=== PATIENT | male | born 1970 | race Caucasian/White ===

== ENCOUNTER 2016-10-13 12:17 | Emergency (ER) | payer SELFPAY ==
[2016-10-13] MEDS ORDERED: ONDANSETRON 4 MG TAB.RAPDIS PO ONE (13:13)
[2016-10-13] MEDS ORDERED: KETOROLAC TROMETHAMINE 60 MG/2 ML SDV IM ONE (13:13)
--- NOTE | 2016-10-13 13:26 | ER Document Report ---
ED GI/ - General Chief Complaint: Low Back Pain Stated Complaint: URINARY ISSUE Notes: Patient is complaining of pain in the right flank which began last night. He's had some nausea but not vomiting. Has not had any UTI symptoms or noted any blood in his urine. No fever. Patient has a history of kidney stones, having had a left kidney stone removed this past May, followed by having a stent in that left ureter which was removed June 12. On an x-ray of the patient's abdomen on that visit in June, patient had a 7 mm right kidney stone. Hx: Appendectomy, double hernia repair, left kidney surgery for stone. TRAVEL OUTSIDE OF THE [place] IN LAST 30 DAYS: No - Related Data Allergies/Adverse Reactions: No Known Allergies Allergy (Verified 10/13/16 12:37) Past Medical History - Social History Smoking Status: Former Smoker Cigarette use (# per day): No Chew tobacco use (# tins/day): No Frequency of alcohol use: None Drug Abuse: None Family History: Reviewed & Not Pertinent Patient has suicidal ideation: No Patient has homicidal ideation: No - Past Medical History Cardiac Medical History: Denies: Hx Coronary Artery Disease, Hx Heart Attack, Hx Hypertension Pulmonary Medical History: Denies: Hx Asthma, Hx Bronchitis, Hx COPD, Hx Pneumonia Renal/ Medical History: Reports: Hx Kidney Stones Musculoskeltal Medical History: Denies Hx Arthritis Past Surgical History: Reports: Hx Appendectomy, Hx Herniorrhaphy - Bilateral at age 14, Hx Kidney (Renal Surgery) - Lithotripsy, renal stent, Hx Orthopedic Surgery - knees - Immunizations Immunizations up to date: Yes Hx Diphtheria, Pertussis, Tetanus Vaccination: Yes Review of Systems - Review of Systems Notes: REVIEW OF SYSTEMS: CONSTITUTIONAL : Denies fever. EENT: Denies eye, ear, nose or mouth or throat pain or other symptoms. CARDIOVASCULAR: Denies chest pain. RESPIRATORY: Denies cough, chest congestion, or shortness of breath. GASTROINTESTINAL: Denies abdominal pain, vomiting, or diarrhea. Has pain in the right flank and some nausea. GENITOURINARY: Denies difficulty or painful urinating, urinary frequency, blood in urine. MUSCULOSKELETAL: Denies back or neck pain. Denies joint pain or swelling. SKIN: Denies rash or skin lesions. NEUROLOGICAL: Denies LOC or altered mental status. Denies headache. Denies sensory loss or motor deficits. ALL OTHER SYSTEMS REVIEWED AND NEGATIVE. Physical Exam - Vital signs Vitals: Temp Pulse Resp BP Pulse Ox 98.0 F 83 18 125/70 100 10/13/16 12:23 10/13/16 12:23 10/13/16 12:23 10/13/16 12:23 10/13/16 12:23 Interpretation: Normal - Notes Notes: PHYSICAL EXAMINATION: GENERAL: Well-appearing, in no acute distress. Ambulatory without difficulty. All vital signs are normal. HEAD: Atraumatic, normocephalic. LUNGS: Breath sounds clear and equal bilaterally. HEART: Regular rate and rhythm without murmurs. ABDOMEN: Soft, nontender. No guarding or rebound. Bowel sounds are normal. Mild tenderness to percussion in the right flank. BACK: No tenderness throughout entire back. EXTREMITIES: Normal range of motion without pain. NEUROLOGICAL: Normal speech, normal gait. Normal sensory, motor, and reflex exams. Awake, alert, and oriented x3. Cranial nerves normal. PSYCH: Normal mood, normal affect. SKIN: Warm, dry, no rashes. Course - Re-evaluation Re-evalutation: 10/13/16 13:[address] scan result from May,. Reviewed KUB results and report from June,. Shows a 7 mm stone in the right kidney. - Vital Signs Vital signs: Temp Pulse Resp BP Pulse Ox 98.0 F 83 18 125/70 100 10/13/16 12:23 10/13/16 12:23 10/13/16 12:23 10/13/16 12:23 10/13/16 12:23 - Diagnostic Test Radiology reviewed: Image reviewed - X-ray of the abdomen shows 2 stones in the right kidney, the largest measuring 7 mm. There is no evidence of a ureteral stone., Reports reviewed Discharge - Discharge Clinical Impression: Renal colic on right side Condition: Stable Disposition: HOME, SELF-CARE Additional Instructions: Flank Pain We weren't able to prove an exact cause for your flank pain. Pain in the flank can be caused by a muscle strain or spasm. Sometimes a kidney stone causes pain, but can't be found on our tests. Infection in the kidney should be evident on a urine test. Early shingles can occasionally cause flank pain, without the rash that proves the diagnosis. On rare occasions, disease of the pancreas, aorta, spleen, or colon can create pain in the flank. At this time, there's no evidence of a dangerous condition, and it seems safe for you to be at home. If the pain goes away and does not come back, no further testing will be needed. If pain persists, or becomes more severe, we may need to repeat some tests or order additional new testing. Blood in the urine, urgency to urinate frequently, and pain that radiates to the groin can indicate a kidney stone. Fever may mean that the pain is due to infection, either of the kidney or the colon (diverticulitis). If your pain is early shingles, you should develop an eruption of blisters in the painful area within a few days. Call the doctor or return if you have pain that is spreading or becoming more severe, pain that does not resolve with time, fever, or any other new symptoms. Kidney Stone You have two kidney stonesin your right kidney. These stones are usually due to increased calcium or uric acid concentrations in your urine. Stones within the kidney itself are not painful. The pain occurs as the stone leaves the kidney to pass down the long tube, called the ureter, leading to the bladder. If the stone is small, it will usually pass by itself. Most patients can pass the stone at home. You will usually receive medications for pain, nausea or vomiting, and sometimes a medication to assist in passing the kidney stone. However, if the pain is very severe or if vomiting prevents you from taking oral pain medications, you may need to return for further treatment. Drink three or four quarts of fluids per day. You will be given pain medication (if needed) and urine strainers. Strain all your urine to see if the stone passes. If your doctor has asked you to bring the stone in for analysis, return with the stone once it has passed. Return if pain or vomiting become severe, if you develop a high fever, if you are unable to pass your urine, or if other unusual symptoms occur. Your urinalysis was normal, without evidence of infection or bleeding. Antinausea Medication You have been given a medication to suppress nausea and vomiting. This type of medication can be given as a shot, pill, or suppository. It will usually last for many hours. Pills and shots usually last six to eight hours, suppositories last about 12 hours. For the typical illness, only one or two doses of the medication may be necessary. Mild lightheadedness may occur. This type of medicine can cause drowsiness. Do not drive or operate dangerous machinery while under its influence. Do not mix with alcohol. See your doctor at once if you have muscle spasms or tightness, or uncontrollable motions (particularly of the neck, mouth, or jaw). Persistent vomiting or severe lightheadedness should also be evaluated by the physician. Oral Narcotic Medication You have been given a prescription for pain control. This medication is a narcotic. It's best taken with food, as nausea can result if taken on an empty stomach. Don't operate machinery or drive within six hours of taking this medication. Do not combine this medicine with alcohol, or with any medication which can cause sedation (such as cold tablets or sleeping pills) unless you get permission from the physician. Narcotics tend to cause constipation. If possible, drink plenty of fluids and eat a diet high in fiber and fruits. FOLLOW-UP CARE: If you have been referred to a physician for follow-up care, call the physician s office for an appointment as you were instructed or within the next two days. If you experience worsening or a significant change in your symptoms, notify the physician immediately or return to the Emergency Department at any time for re-evaluation. Return to the emergency department for reevaluation if you have pain that you can't control with the pain medication prescribed, if you have vomiting and can' t keep down fluids in your medications, or if you run a significant fever, greater than 100. We recommend you follow-up with Dr. Meléndez Prescriptions: Oxycodone HCl/Acetaminophen [Percocet 5-325 mg Tablet] 1 - 2 tab PO Q4H PRN #15 tablet PRN Reason: Promethazine HCl [Phenergan 25 mg Tablet] 1 - 2 tab PO Q6H PRN #15 tablet PRN Reason: Referrals: WERO MELÉNDEZ MD [ACTIVE STAFF] - Follow up as needed
[2016-10-13 13:37] LABS: APPEARANCE,URINE CLEAR; BILIRUBIN,URINE NEGATIVE (NEGATIVE); GLUCOSE, URINE NEGATIVE (NEGATIVE); KETONES,URINE NEGATIVE (NEGATIVE); LEUKOCYTE ESTERASE,URINE NEGATIVE (NEGATIVE); NITRITE,URINE NEGATIVE (NEGATIVE); PROTEIN,URINE NEGATIVE (NEGATIVE); URINE SPECIFIC GRAVITY 1.019; UROBILINOGEN,URINE NEGATIVE mg/dL (<2.0)
[2016-10-13 14:50] VITALS: BP 116/78
== END 2016-10-13 14:51 | disposition home or self-care (01) ==
LOC: ER 12:17
DX: N20.0 Calculus of kidney (principal); M54.5 Low back pain; R11.0 Nausea; Z98.890 Other specified postprocedural states; Z87.891 Personal history of nicotine dependence
CPT/HCPCS: 99284; 96372; 81001; 74000; J1885; S0119

== ENCOUNTER 2018-02-15 02:08 | Emergency (ER) | payer SELFPAY ==
[2018-02-15] MEDS ORDERED: MORPHINE SULFATE 10 MG/ML INJ IV ONE (02:42)
[2018-02-15] MEDS ORDERED: ONDANSETRON HCL INJ/PF 4 MG/2 ML SDV IV ONE (02:42)
[2018-02-15] MEDS ORDERED: NORMAL SALINE 1000 ML 1,000 ML IV ONE ×3 (02:42→05:09)
[2018-02-15] MEDS ORDERED: KETOROLAC TROMETHAMINE INJ/PF 30 MG/1 ML SDV IV ONE (02:42)
--- NOTE | 2018-02-15 02:46 | ER Document Report ---
ED General <KRYSTYNA HAN - Last Filed: 02/15/18 07:07> - General Mode of Arrival: Ambulatory Information source: Patient TRAVEL OUTSIDE OF THE [place] IN LAST 30 DAYS: No <LAUREN HERNANDEZ - Last Filed: 02/28/18 14:22> - General Chief Complaint: Possible Kidney Stone Stated Complaint: FLANK PAIN Time Seen by Provider: 02/15/18 02:34 Notes: Patient is a 47 year old male with a history of kidney stones presents to the emergency department complaining of right sided flank pain worsening 2 hours ago. Patient states his flank pain was onset yesterday morning stating his pain was located in right flank and radiated into his right lower quadrant and right testicle. He also mentioned he noticed that his urine was a little cloudy. He states he proceeded to drink a lot of water throughout the day and when he returned home, he went to bed. Around 0100, patient states he woke up with his right flank pain being severely worse. Patient states he previously had a laser lithotripsy on the left in May 2016. At bedside patient is kneeling on the floor due to pain. (LAUREN HERNANDEZ) - Related Data Allergies/Adverse Reactions: No Known Allergies Allergy (Verified 10/13/16 12:37) Past Medical History - General Information source: Patient - Social History Smoking Status: Former Smoker Family History: Reviewed & Not Pertinent Patient has suicidal ideation: No Patient has homicidal ideation: No Renal/ Medical History: Reports: Hx Kidney Stones Past Surgical History: Reports: Hx Appendectomy, Hx Herniorrhaphy - Bilateral at age 14, Hx Kidney (Renal Surgery) - Lithotripsy, renal stent, Hx Orthopedic Surgery - knees - Immunizations Immunizations up to date: Yes Hx Diphtheria, Pertussis, Tetanus Vaccination: Yes <LAUREN HERNANDEZ - Last Filed: 02/28/18 14:22> Review of Systems - Review of Systems Constitutional: No symptoms reported EENT: No symptoms reported Cardiovascular: No symptoms reported Respiratory: No symptoms reported Gastrointestinal: No symptoms reported Genitourinary: See HPI, Flank pain Male Genitourinary: No symptoms reported Musculoskeletal: No symptoms reported Skin: No symptoms reported Hematologic/Lymphatic: No symptoms reported Neurological/Psychological: No symptoms reported -: Yes All other systems reviewed and negative <LAUREN HERNANDEZ - Last Filed: 02/28/18 14:22> Physical Exam - General General appearance: Alert, Other - Appears uncomfortable, seemed angry due to pain. In distress: None - HEENT Head: Normocephalic, Atraumatic Extraocular movements intact: Yes Pupils: PERRL - Respiratory Respiratory status: No respiratory distress - Cardiovascular Rhythm: Regular Heart sounds: Normal auscultation Murmur: No Friction rub: No Gallop: None auscultated - Abdominal Inspection: Normal Distension: No distension Bowel sounds: Normal Tenderness: Tender - RLQ tenderness to palaption Organomegaly: No organomegaly - Back Back: CVA tenderness - Right CVA tenderness to palpation - Extremities General upper extremity: Normal ROM General lower extremity: Normal ROM - Neurological Neuro grossly intact: Yes Cognition: Normal Orientation: AAOx4 Jose D Coma Scale Eye Opening: Spontaneous [place] Coma Scale Verbal: Oriented Jose D Coma Scale Motor: Obeys Commands Jose D Coma Scale Total: 15 Speech: Normal - Psychological Associated symptoms: Normal affect, Normal mood, Angry - due to pain - Skin Skin Temperature: Warm Skin Moisture: Dry Skin Color: Normal <LAUREN HERNANDEZ - Last Filed: 02/28/18 14:22> - Vital signs Vitals: Temp Pulse Resp BP Pulse Ox 97.6 F 66 18 135/77 H 99 02/15/18 02:14 02/15/18 02:14 02/15/18 02:14 02/15/18 02:14 02/15/18 02:14 Course - Diagnostic Test Radiology reviewed: Image reviewed - Mid right ureteral stone about 6 mm x 8 mm with mild to moderate hydroureter and hydronephrosis. <KRYSTYNA HAN - Last Filed: 02/15/18 07:07> <LAUREN HERNANDEZ - Last Filed: 02/28/18 14:22> - Re-evaluation Re-evalutation: 02/15/18 06:14 The urine had a specific gravity 1.026 after 2 liters of IV fluid. There were 40 WBCs and too numerous to count RBCs. It was dipstick negative for leukocyte esterase and negative for nitrites. Urine will be cultured. (KRYSTYNA HAN) - Vital Signs Vital signs: Temp Pulse Resp BP Pulse Ox 97.9 F 61 20 110/67 98 02/15/18 07:32 02/15/18 07:32 02/15/18 07:32 02/15/18 07:32 02/15/18 07:32 - Laboratory Laboratory results interpreted by me: 02/15/18 04:40 Urine Protein 100 H Urine Blood LARGE H Urine Urobilinogen 2.0 H Discharge <KRYSTYNA HAN - Last Filed: 02/15/18 07:07> <LAUREN HERNANDEZ - Last Filed: 02/28/18 14:22> - Discharge Clinical Impression: Renal colic on right side, Hematuria Condition: Stable Disposition: HOME, SELF-CARE Additional Instructions: Kidney Stone You are passing or have passed a kidney stone. These stones are usually due to increased calcium or uric acid concentrations in your urine. Stones within the kidney itself are not painful. The pain occurs as the stone leaves the kidney to pass down the long tube, called the ureter, leading to the bladder. If the stone is small, it will usually pass by itself. Most patients can pass the stone at home. You will usually receive medications for pain, nausea or vomiting, and sometimes a medication to assist in passing the kidney stone. However, if the pain is very severe or if vomiting prevents you from taking oral pain medications, you may need to return for further treatment. Drink three or four quarts of fluids per day. You will be given pain medication (if needed) and urine strainers. Strain all your urine to see if the stone passes. If your doctor has asked you to bring the stone in for analysis, return with the stone once it has passed. Return if pain or vomiting become severe, if you develop a high fever, if you are unable to pass your urine, or if other unusual symptoms occur. Take the medications as prescribed for pain and nausea. Plenty of fluids. Rest today. Follow-up with a local urologist if not improving. RETURN TO THE EMERGENCY ROOM IF ANY NEW OR WORSENING SYMPTOMS. Prescriptions: Ondansetron HCl [Zofran 8 mg Tablet] 8 mg PO Q6 PRN #15 tab PRN Reason: Referrals: [facility] [Provider Group] - Follow up as needed [facility] [Provider Group] - Follow up as needed Scribe Attestation: 02/15/18 03:11 I personally performed the services described in the documentation, reviewed and edited the documentation which was dictated to the scribe in my presence, and it accurately records my words and actions. (KRYSTYNA HAN) Scribe Documentation - Scribe Written by Dimple:: Dimple Rosa, 02/15/2018 02:53 acting as scribe for :: Arya <LAUREN HERNANDEZ - Last Filed: 02/28/18 14:22>
[2018-02-15 05:38] LABS: APPEARANCE,URINE CLOUDY; BILIRUBIN,URINE NEGATIVE (NEGATIVE); CALCIUM OXALATE CRYSTALS,URINE MODERATE /HPF; COLOR,URINE AMBER; GLUCOSE, URINE NEGATIVE (NEGATIVE); KETONES,URINE NEGATIVE (NEGATIVE); LEUKOCYTE ESTERASE,URINE NEGATIVE (NEGATIVE); NITRITE,URINE NEGATIVE (NEGATIVE); PROTEIN,URINE 100 mg/dL (NEGATIVE); URINE SPECIFIC GRAVITY 1.026
--- NOTE | 2018-02-15 06:50 | RADIOLOGY REPORT (SQ) ---
EXAM DESCRIPTION: CT ABDOMEN AND PELVIS WITHOUT CONTRAST CLINICAL HISTORY: Right flank pain, hematuria COMPARISON: 05/06/2016 TECHNIQUE: CT of the abdomen and pelvis without IV contrast. Evaluation of the solid organs and vasculature is suboptimal due to lack of IV contrast. DLP: 351.68 mGy-cm FINDINGS: Lung Bases: Minimal bilateral dependent atelectasis. Bones: No destructive bone lesions identified. Minimal degenerative change of the spine. Abdomen: Liver: The liver has normal size and density. Gallbladder: No calcified gallstones. Spleen, Pancreas, and Adrenal Glands: The spleen, pancreas, and adrenal glands are unremarkable. Kidneys: There is a 0.8 cm obstructing calculus in the proximal right ureter producing mild right hydroureter and hydronephrosis. There is a 0.7 cm nonobstructing right renal calculus. No left-sided hydronephrosis. Vasculature: The aorta and IVC have normal caliber and position. Stomach: The stomach and duodenum have normal course. Other: No free intraperitoneal air. No free fluid or lymphadenopathy. Pelvis: Bladder: Urinary bladder is unremarkable. Bowel: No dilated loops of large or small bowel. Appendix: Normal appendix. Pelvis: Dystrophic calcifications identified in a nonenlarged prostate. IMPRESSION: 1. There is a 0.8 cm obstructing calculus in the proximal right ureter producing mild right hydroureter and hydronephrosis. 2. Nonobstructing right renal calculus. This exam was performed according to our departmental dose-optimization program, which includes automated exposure control, adjustment of the mA and/or kV according to patient size and/or use of iterative reconstruction technique.
[2018-02-15] MEDS ORDERED: ONDANSETRON ODT 4 MG TAB (6 TAB/ER DISP) PO PRN (07:02)
[2018-02-15] MEDS ORDERED: HYDROCODONE/ACETAMINOPHEN 5-325 MG (6 TAB/ER DISP) PO PRN (07:02)
[2018-02-15 07:33] VITALS: BP 110/67
== END 2018-02-15 07:40 | disposition home or self-care (01) ==
LOC: ER 02:08
DX: N13.2 Hydronephrosis with renal and ureteral calculous obstruction (principal); R31.9 Hematuria, unspecified; Z98.890 Other specified postprocedural states
CPT/HCPCS: 99284; 96361; 96374; 96375; 87086; 81001; 76380; J1885; J2270; J2405; J7030

== ENCOUNTER 2018-02-16 20:15 | Emergency (ER) | payer SELFPAY ==
[2018-02-16] MEDS ORDERED: KETOROLAC TROMETHAMINE 60 MG/2 ML SDV IM ONE (20:21)
[2018-02-16] MEDS ORDERED: PROMETHAZINE HCL INJ 25 MG/1 ML VIAL IM ONE (23:02)
[2018-02-16 23:08] LABS: ABSOLUTE BASOPHILS # (AUTO) 0.1 10^3/uL (0.0-0.2); ABSOLUTE EOSINOPHILS # (AUTO) 0.1 10^3/uL (0.0-0.6); BASOPHILS % (AUTO) 0.9 % (0-2); EOSINOPHILS % (AUTO) 0.7 % (0-6); HEMATOCRIT 38.1 % (37.9-51.0); HEMOGLOBIN 12.7 g/dL (13.5-17.0); MEAN CORPUSCULAR HEMOGLOBIN 28.7 pg (27.0-33.4); MEAN CORPUSCULAR HGB CONC 33.2 g/dL (32.0-36.0); MEAN CORPUSCULAR VOLUME 86 fl (80-97); MONOCYTES % (AUTO) 8.4 % (3-13); PLATELET COUNT 246 10^3/uL (150-450); RED BLOOD COUNT 4.42 10^6/uL (4.35-5.55); RED CELL DISTRIBUTION WIDTH 14.3 % (11.5-14.0); TOTAL CELLS COUNTED % (AUTO) 100 %; WHITE BLOOD COUNT 12.1 10^3/uL (4.0-10.5)
[2018-02-16 23:22] LABS: ANION GAP 8 (5-19); BLOOD UREA NITROGEN 25 mg/dL (7-20); CALCIUM 9.1 mg/dL (8.4-10.2); CARBON DIOXIDE 25 mmol/L (22-30); CHLORIDE 108 mmol/L (98-107); GLUCOSE 98 mg/dL (75-110); POTASSIUM 3.8 mmol/L (3.6-5.0); SODIUM 140.8 mmol/L (137-145)
[2018-02-16] MEDS: NORMAL SALINE 1000 ML 1,000 ML IV PRN (23:25)
[2018-02-16] MEDS ORDERED: HYDROMORPHONE HCL INJ/PF 2 MG/ML AMPULE IV ONE (23:32)
[2018-02-17 01:11] LABS: APPEARANCE,URINE SLIGHTLY-CLOUDY; BILIRUBIN,URINE NEGATIVE (NEGATIVE); COLOR,URINE YELLOW; GLUCOSE, URINE NEGATIVE (NEGATIVE); KETONES,URINE 20 mg/dL (NEGATIVE); LEUKOCYTE ESTERASE,URINE NEGATIVE (NEGATIVE); NITRITE,URINE NEGATIVE (NEGATIVE); PROTEIN,URINE 30 mg/dL (NEGATIVE); URINE SPECIFIC GRAVITY 1.026
--- NOTE | 2018-02-17 01:52 | ER Document Report ---
ED General - General Chief Complaint: Flank Pain Stated Complaint: BACK PAIN Time Seen by Provider: 02/16/18 22:04 Mode of Arrival: Ambulatory Information source: Patient TRAVEL OUTSIDE OF THE [place] IN LAST 30 DAYS: No - HPI Patient complains to provider of: kidney stone pain Onset: Yesterday - started yesterday. Was seen here and ischarged home-pain meds not working Onset/Duration: Waxing and waning Quality of pain: Pressure Severity: Moderate Associated symptoms: Nausea, Vomiting Exacerbated by: Denies Relieved by: Denies Similar symptoms previously: Yes Recently seen / treated by doctor: Yes - Related Data Allergies/Adverse Reactions: No Known Allergies Allergy (Verified 10/13/16 12:37) Past Medical History - General Information source: Patient - Social History Smoking Status: Former Smoker Chew tobacco use (# tins/day): No Frequency of alcohol use: None Drug Abuse: None Family History: Reviewed & Not Pertinent Patient has suicidal ideation: No Patient has homicidal ideation: No - Past Medical History Cardiac Medical History: Reports: None Pulmonary Medical History: Reports: None EENT Medical History: Reports: None Neurological Medical History: Reports: None Endocrine Medical History: Reports: None Renal/ Medical History: Reports: Hx Kidney Stones. Denies: Hx Peritoneal Dialysis Malignancy Medical History: Reports None GI Medical History: Reports: None Musculoskeltal Medical History: Reports None Past Surgical History: Reports: Hx Appendectomy, Hx Herniorrhaphy - Bilateral at age 14, Hx Kidney (Renal Surgery) - Lithotripsy, renal stent, Hx Orthopedic Surgery - knees - Immunizations Immunizations up to date: Yes Hx Diphtheria, Pertussis, Tetanus Vaccination: Yes Review of Systems - Review of Systems Constitutional: No symptoms reported EENT: No symptoms reported Cardiovascular: No symptoms reported Respiratory: No symptoms reported Gastrointestinal: Nausea, Vomiting, Constipation - last BM 4 dyas ago Genitourinary: No symptoms reported Male Genitourinary: No symptoms reported Musculoskeletal: No symptoms reported Skin: No symptoms reported Hematologic/Lymphatic: No symptoms reported Neurological/Psychological: No symptoms reported Physical Exam - Vital signs Vitals: Temp Pulse Resp BP Pulse Ox 98.6 F 57 L 18 120/72 99 02/16/18 20:28 02/16/18 20:28 02/16/18 20:28 02/16/18 20:28 05/16/18 20:28 - Notes Notes: PHYSICAL EXAMINATION: GENERAL: She with mild distress secondary to right flank pain. Emesis in the emergency chemistry department chair: Atraumatic, normocephalic. EYES: Pupils equal round and reactive to light, extraocular movements intact, sclera anicteric, conjunctiva are normal. ENT: Nares patent, oropharynx clear without exudates. Dry mucous membranes. NECK: Normal range of motion, supple without lymphadenopathy LUNGS: Breath sounds clear to auscultation bilaterally and equal. No wheezes rales or rhonchi. HEART: Regular rate and rhythm without murmurs ABDOMEN: Soft, nontender, nondistended abdomen. No guarding, no rebound. No masses appreciated. Musculoskeletal: Normal range of motion, no pitting or edema. No cyanosis. NEUROLOGICAL: Cranial nerves grossly intact. Normal speech, normal gait. Normal sensory, motor exams PSYCH: Normal mood, normal affect. SKIN: Warm, Dry, normal turgor, no rashes or lesions noted. Course - Re-evaluation Re-evalutation: 02/17/18 01:52 Labs- All tests 24 hr 02/16/18 02/16/18 02/17/18 23:00 23:00 00:20 WBC 12.1 H RBC 4.42 Hgb 12.7 L Hct 38.1 MCV 86 MCH 28.7 MCHC 33.2 RDW 14.3 H Plt Count 246 Seg Neutrophils % 82.0 H Lymphocytes % 8.0 L Monocytes % 8.4 Eosinophils % 0.7 Basophils % 0.9 Absolute Neutrophils 10.0 H Absolute Lymphocytes 1.0 Absolute Monocytes 1.0 Absolute Eosinophils 0.1 Absolute Basophils 0.1 Sodium 140.8 Potassium 3.8 Chloride 108 H Carbon Dioxide 25 Anion Gap 8 BUN 25 H Creatinine 1.59 H Est GFR ( Amer) 57 L Est GFR (Non-Af Amer) 47 L Glucose 98 Calcium 9.1 Urine Color YELLOW Urine Appearance SLIGHTLY-CLOUDY Urine pH 5.0 Ur Specific [place] 1.026 Urine Protein 30 H Urine Glucose (UA) NEGATIVE Urine Ketones 20 H Urine Blood MODERATE H Urine Nitrite NEGATIVE Urine Bilirubin NEGATIVE Urine Urobilinogen 4.0 H Ur Leukocyte Esterase NEGATIVE Urine WBC (Auto) 4 Urine RBC (Auto) 21 Squamous Epi Cells Auto 1 Urine Mucus (Auto) MANY Urine Ascorbic Acid NEGATIVE 02/17/18 01:53 CAT scan done yesterday which was a stone study shows a 0.8 cm proximal right ureteral stone with mild hydro- 02/17/18 01:53 He is feeling much better after Dilaudid Toradol and IV fluids. He has no emesis in the emergency department he is tolerating Gatorade. I told him that tomorrow he has to call urology and find a urologist for follow-up as we do not have one filtration supervisor here tonight and we do not have one until next Wednesday. Patient is to make sure he is drinking plenty of fluids. I will give him Toradol to go home with as a seem to work the best for pain management. Patient is to return to the emergency department if he has fevers, intractable vomiting, inability to urinate, increased pain or any other concerns. Patient verbalized understanding he was agreeable to the discharge plan. Asked for something for constipation which I told him I would give him. - Vital Signs Vital signs: Temp Pulse Resp BP Pulse Ox 98.6 F 57 L 18 120/72 99 02/16/18 20:28 02/16/18 20:28 02/16/18 20:28 02/16/18 20:28 02/16/18 20:28 - Laboratory Result Diagrams: 02/16/18 23:00 02/16/18 23:00 Laboratory results interpreted by me: 02/16/18 02/16/18 02/17/18 23:00 23:00 00:20 WBC 12.1 H Hgb 12.7 L RDW 14.3 H Seg Neutrophils % 82.0 H Lymphocytes % 8.0 L Absolute Neutrophils 10.0 H Chloride 108 H BUN 25 H Creatinine 1.59 H Est GFR ( Amer) 57 L Est GFR (Non-Af Amer) 47 L Urine Protein 30 H Urine Ketones 20 H Urine Blood MODERATE H Urine Urobilinogen 4.0 H Discharge - Discharge Clinical Impression: Constipated, Right ureteral calculus, Hematuria, Renal colic on right side Condition: Stable Disposition: HOME, SELF-CARE Instructions: Toradol Injection ([facility]), Kidney Stone ([facility]) Additional Instructions: Catheter bottle of mag citrate when you go home. If no bowel movement within 4 hours he can take the other half. Please take Toradol as prescribed. Please call urology in the morning as we discussed. Return to the emergency department if you have intractable vomiting, increased pain, inability to tolerate pain meds, inability to urinate, fevers or other concerns. Prescriptions: Ketorolac Tromethamine [Toradol 10 mg Tablet] 10 mg PO Q6HP PRN 3 Days #12 tablet PRN Reason: Referrals: [facility] [Provider Group] - Follow up as needed UROLOGY [Provider Group] - Follow up as needed RAMANDEEP WALLER MD [[facility]] - Follow up as needed
[2018-02-17] MEDS ORDERED: MAGNESIUM CITRATE 296 ML BOTTLE PO ONE (01:55)
[2018-02-17] MEDS: NORMAL SALINE 1000 ML 1,000 ML IV PRN (02:03)
[2018-02-17 02:05] VITALS: BP 111/65
== END 2018-02-17 02:27 | disposition home or self-care (01) ==
LOC: ER 20:15
DX: K59.00 Constipation, unspecified (principal); N13.2 Hydronephrosis with renal and ureteral calculous obstruction; R10.9 Unspecified abdominal pain; Z87.891 Personal history of nicotine dependence
CPT/HCPCS: 99284; 96372; 96361; 96374; 36415; 85025; 80048; 81001; J3490; J1885; J1170; J2550; J7030 ×2

== ENCOUNTER 2018-03-13 19:17 | Inpatient (IN) | payer SELFPAY ==
[2018-03-13] MEDS ORDERED: KETOROLAC TROMETHAMINE INJ/PF 30 MG/1 ML SDV IM ONE (20:15)
[2018-03-13 20:31] LABS: ABSOLUTE EOSINOPHILS # (AUTO) 0.3 10^3/uL (0.0-0.6); ABSOLUTE LYMPHOCYTES (AUTO) 1.2 10^3/uL (0.5-4.7); ABSOLUTE MONOCYTES (AUTO) 1.1 10^3/uL (0.1-1.4); ABSOLUTE NEUT (AUTO) 9.3 10^3/uL (1.7-8.2); BASOPHILS % (AUTO) 0.3 % (0-2); EOSINOPHILS % (AUTO) 2.2 % (0-6); HEMATOCRIT 42.5 % (37.9-51.0); HEMOGLOBIN 14.1 g/dL (13.5-17.0); LYMPHOCYTES % (AUTO) 10.1 % (13-45); MEAN CORPUSCULAR HEMOGLOBIN 28.5 pg (27.0-33.4); MEAN CORPUSCULAR HGB CONC 33.3 g/dL (32.0-36.0); MEAN CORPUSCULAR VOLUME 86 fl (80-97); MONOCYTES % (AUTO) 9.6 % (3-13); PLATELET COUNT 238 10^3/uL (150-450); RED BLOOD COUNT 4.95 10^6/uL (4.35-5.55); RED CELL DISTRIBUTION WIDTH 14.2 % (11.5-14.0); SEGMENTED NEUTROPHILS % (AUTO) 77.8 % (42-78); TOTAL CELLS COUNTED % (AUTO) 100 %; WHITE BLOOD COUNT 11.9 10^3/uL (4.0-10.5)
[2018-03-13] MEDS ORDERED: NORMAL SALINE 1000 ML 1,000 ML IV ONE ×2 (20:34→21:17)
[2018-03-13] MEDS ORDERED: KETOROLAC TROMETHAMINE INJ/PF 30 MG/1 ML SDV IV ONE (20:34)
[2018-03-13] MEDS ORDERED: FENTANYL CITRATE INJ/PF 100 MCG/2 ML AMPUL IV ONE (20:34)
--- NOTE | 2018-03-13 20:50 | ER Document Report ---
ED GI/ - General Chief Complaint: Possible Kidney Stone Stated Complaint: RIGHT SIDE PAIN Time Seen by Provider: 03/13/18 20:26 Notes: Patient is a 47-year-old male with a history of kidney stones who comes emergency department for chief complaint of right flank pain and vomiting. He states his vomited multiple times today, pain radiates around his mid to lower right abdomen and groin. He states he has a known left-sided kidney stone that is 8 mm and a known right-sided kidney stone that is 4 mm. He does have local urology with [facility] he reports, he does have a follow-up scheduled. He denies fever or chills. He denies any other medical history other than kidney stones. TRAVEL OUTSIDE OF THE [place] IN LAST 30 DAYS: No - Related Data Allergies/Adverse Reactions: No Known Allergies Allergy (Verified 10/13/16 12:37) Past Medical History - General Information source: Patient - Social History Smoking Status: Current Every Day Smoker Drug Abuse: None Lives with: Alone Family History: Reviewed & Not Pertinent Renal/ Medical History: Reports: Hx Kidney Stones. Denies: Hx Peritoneal Dialysis Past Surgical History: Reports: Hx Appendectomy, Hx Herniorrhaphy - Bilateral at age 14, Hx Kidney (Renal Surgery) - Lithotripsy, renal stent, Hx Orthopedic Surgery - knees - Immunizations Immunizations up to date: Yes Hx Diphtheria, Pertussis, Tetanus Vaccination: Yes Review of Systems - Review of Systems Constitutional: No symptoms reported EENT: No symptoms reported Cardiovascular: No symptoms reported Respiratory: No symptoms reported Gastrointestinal: See HPI Genitourinary: See HPI Male Genitourinary: No symptoms reported Musculoskeletal: No symptoms reported Skin: No symptoms reported Hematologic/Lymphatic: No symptoms reported Neurological/Psychological: No symptoms reported Physical Exam - Vital signs Vitals: Temp Pulse Resp BP Pulse Ox 98.5 F 101 H 16 129/88 H 99 03/13/18 19:22 03/13/18 19:22 03/13/18 19:22 03/13/18 19:22 03/13/18 19:22 - Notes Notes: GENERAL: Alert, interacts well. Patient appears to be in a lot of pain HEAD: Normocephalic, atraumatic. EYES: Pupils equal, round, and reactive to light. Extraocular movements intact. ENT: Oral mucosa moist, tongue midline. [Nares patent, no nasal septal hematoma , TM's intact.] NECK: Full range of motion. Supple. Trachea midline. LUNGS: Clear to auscultation bilaterally, no wheezes, rales, or rhonchi. No respiratory distress. HEART: Borderline tachycardic, normal rhythm, no murmur ABDOMEN: Mid to lower right abdominal tenderness, nonspecific, no guarding, no rigidity EXTREMITIES: Moves all 4 extremities spontaneously. No edema, normal radial and dorsalis pedis pulses bilaterally. No cyanosis. BACK: Right CVA tenderness, left unremarkable, remaining back unremarkable NEUROLOGICAL: Alert and oriented x3. Normal speech. [cranial nerves II through XII grossly intact]. SKIN: Warm, dry, normal turgor. No rashes or lesions noted. Course - Re-evaluation Re-evalutation: Mild leukocytosis with elevation of neutrophils but no bandemia. Chemistry shows acute renal failure with creatinine 1.8 although previous was 1.6, patient states he works hard outside in the heat all day. During concerning for possible developing infection. Patient initially mildly tachycardic but this resolved with fluids. Patient very uncomfortable at first but this resolved with medications. Because a workup became concerned and CAT scan was performed, this shows obstruction from 2 stones that are passing in the right ureter, hydronephrosis, hydroureter. Will discuss with urology for possible admission. Discussed with Dr. Aldana, urology supervisor communications and signals, he recommends admission with plans to perform a stent in the morning. Discussed with hospitalist, Dr. Waddell, patient will be admitted to the hospital on telemetry. Patient states understanding and agreement. - Vital Signs Vital signs: Temp Pulse Resp BP Pulse Ox 97.8 F 65 16 121/74 99 03/14/18 04:04 03/14/18 04:04 03/14/18 04:04 03/14/18 04:04 03/14/18 04:04 - Laboratory Result Diagrams: 03/13/18 20:12 03/13/18 20:12 Laboratory results interpreted by me: 03/13/18 03/13/18 03/13/18 20:12 20:12 20:12 WBC 11.9 H RDW 14.2 H Lymphocytes % 10.1 L Absolute Neutrophils 9.3 H BUN 24 H Creatinine 1.68 H Est GFR ( Amer) 53 L Est GFR (Non-Af Amer) 44 L ALT 11 L Urine Blood MODERATE H Urine Urobilinogen 2.0 H Ur Leukocyte Esterase TRACE H Discharge - Discharge Clinical Impression: Ureterolithiasis, Acute renal insufficiency Vomiting Qualifiers: Vomiting type: unspecified Vomiting Intractability: non-intractable Nausea presence: unspecified Qualified Code(s): R11.10 - Vomiting, unspecified Urinary tract infection Qualifiers: Urinary tract infection type: site unspecified Hematuria presence: with hematuria Qualified Code(s): N39.0 - Urinary tract infection, site not specified Condition: Stable Disposition: ADMITTED INPATIENT Admitting Provider: Hospitalist Unit Admitted: Telemetry
[2018-03-13 20:54] LABS: ALANINE AMINOTRANSFERASE 11 U/L (21-72); ALBUMIN 4.1 g/dL (3.5-5.0); ALKALINE PHOSPHATASE 62 U/L (38-126); ANION GAP 11 (5-19); ASPARTATE AMINO TRANSFERASE 17 U/L (17-59); BILIRUBIN,DIRECT 0.3 mg/dL (0.0-0.4); BILIRUBIN,TOTAL 0.6 mg/dL (0.2-1.3); BLOOD UREA NITROGEN 24 mg/dL (7-20); CALCIUM 9.8 mg/dL (8.4-10.2); CARBON DIOXIDE 27 mmol/L (22-30); CHLORIDE 105 mmol/L (98-107); GLUCOSE 98 mg/dL (75-110); LIPASE 106.2 U/L (23-300); POTASSIUM 3.9 mmol/L (3.6-5.0); SODIUM 142.6 mmol/L (137-145); TOTAL PROTEIN 6.9 g/dL (6.3-8.2)
[2018-03-13 21:07] LABS: APPEARANCE,URINE SLIGHTLY-CLOUDY; BILIRUBIN,URINE NEGATIVE (NEGATIVE); CALCIUM OXALATE CRYSTALS,URINE MODERATE /HPF; COLOR,URINE YELLOW; GLUCOSE, URINE NEGATIVE (NEGATIVE); KETONES,URINE NEGATIVE (NEGATIVE); LEUKOCYTE ESTERASE,URINE TRACE (NEGATIVE); NITRITE,URINE NEGATIVE (NEGATIVE); PROTEIN,URINE NEGATIVE (NEGATIVE); URINE SPECIFIC GRAVITY 1.026
[2018-03-13] MEDS ORDERED: CEFTRIAXONE INJ 1000 MG VIAL IV ONE (21:23)
--- NOTE | 2018-03-13 22:31 | RADIOLOGY REPORT (SQ) ---
EXAM DESCRIPTION: CT LTD RENAL STONE PROTOCOL ON COMPLETED DATE/TIME: 03/13/2018 9:51 pm REASON FOR STUDY: flank pain, vomiting, elevated creatinine COMPARISON: CT abdomen and pelvis 02/15/2018 TECHNIQUE: CT scan of the abdomen and pelvis performed without intravenous or oral contrast. Images reviewed with lung, soft tissue, and bone windows. Reconstructed coronal and sagittal MPR images revi ewed. All images stored on PACS. All CT scanners at this facility use dose modulation, iterative reconstruction, and/or weight based d osing when appropriate to reduce radiation dose to as low as reasonably achievable (ALARA). [facility]: Dose Right [facility]: CareDose [facility]: Dose Right [facility]: Teradose 4D [facility]: Smart Technologies RADIATION DOSE: CT Rad equipment meets quality standard of care and radiation dose reduction techniq ues were employed. CTDIvol: 5.6 mGy. DLP: 307 mGy-cm.mGy. LIMITATIONS: None. FINDINGS: LOWER CHEST: No consolidation or pleural effusion. NON-CONTRASTED LIVER, SPLEEN, ADRENALS: Evaluation limited by lack of IV contrast. No identified sign ificant masses. PANCREAS: No peripancreatic inflammatory changes. GALLBLADDER: No identified stones by CT criteria. No inflammatory changes to suggest cholecystitis. RIGHT KIDNEY AND URETER: Assessment for masses limited by lack of IV contrast. There is perinephric stranding. There is mild right hydroureter and hydronephrosis. There is a 6 mm (430 Hounsfield uni ts) calculus at the distal right ureter, in the pelvis. A 3 mm calculus is also seen at the distal r ight ureter, in the pelvis. Nonobstructing 5 mm calculus at the inferior pole of the right kidney. LEFT KIDNEY AND URETER: Assessment for masses limited by lack of IV contrast. No significant calcif ications. No hydronephrosis or hydroureter. AORTA AND RETROPERITONEUM: No abdominal aortic aneurysm. No retroperitoneal masses or adenopathy. BOWEL AND PERITONEAL CAVITY: No dilated bowel loops or inflammatory changes. No free fluid or free ai r. APPENDIX: Not visualized. PELVIS, BLADDER, AND ABDOMINAL WALL:No abnormal masses. No free fluid. Bladder decompressed. BONES: No significant findings. IMPRESSION: Right-sided obstructive uropathy with perinephric stranding, mild right hydroureteroneph rosis and two distal ureteral calculi measuring up to 6 mm. Right nephrolithiasis. COMMENT: Quality ID # [id number]: Final reports with documentation of one or more dose reduction techniques (e.g., Automated exposure control, adjustment of the mA and/or kV according to patient size, use of iterative reconstruction technique) TECHNICAL DOCUMENTATION: JOB ID: [id number] [employer]- All Rights Reserved Reading location - IP/workstation name: [email or web address]
[2018-03-13] MEDS ORDERED: MAG HYDROX/AL HYDROX/SIMETH SUSP 30 ML UDCUP PO PRN (22:57)
[2018-03-13] MEDS ORDERED: ACETAMINOPHEN 325 MG TABLET PO PRN (22:57)
[2018-03-13] MEDS ORDERED: IPRATROPIUM/ALBUTEROL 0.5-2.5 MG/3 ML AMPUL NEB PRN (22:57)
[2018-03-13] MEDS ORDERED: FENTANYL CITRATE INJ/PF 100 MCG/2 ML AMPUL IV PRN (23:01)
[2018-03-13] MEDS ORDERED: NORMAL SALINE 1000 ML 1,000 ML IV SCH (23:30)
--- NOTE | 2018-03-14 01:17 | PDOC H&P ---
History of Present Illness Admission Date/PCP: 03/13/18 23:10 Patient complains of: Right-sided flank pain History of Present Illness: MACHELLE BOLANOS is a 47 year old male with history of tobacco and recurrent nephrolithiasis. He presents with 24 hours of right-sided flank pain radiating to the groin and multiple episodes of vomiting. In the emergency room is found to have acute renal failure and 2 right-sided nephrolithiasis of 8 and 4 mm respectively. He denies new medication, dehydration, fever chills nausea vomiting or chest pain. Past Medical History Renal/ Medical History: Reports: Nephrolithiasis Psychiatric Medical History: Reports: Tobacco Dependency Hematology: Denies: Anemia Past Surgical History Past Surgical History: Reports: Appendectomy, Herniorrhaphy - Bilateral at age 14, Orthopedic Surgery - knees Social History Information Source: Patient Smoking Status: Current Every Day Smoker Drugs: None - Advance Directive Resuscitation Status: Full Code Family History Family History: Hypertension Parental Family History Reviewed: Yes Children Family History Reviewed: Yes Sibling(s) Family History Reviewed.: Yes Medication/Allergy Home Medications: Tamsulosin HCl [Flomax 0.4 mg Cap.sr] 0.4 mg PO DAILY #14 cap.sr.24h 06/11/16 Oxycodone HCl/Acetaminophen [Percocet 5-325 mg Tablet] 1 - 2 tab PO Q4H PRN #15 tablet 10/13/16 Ondansetron HCl [Zofran 8 mg Tablet] 8 mg PO Q6 PRN #15 tab 02/15/18 Ketorolac Tromethamine [Toradol 10 mg Tablet] 10 mg PO Q6HP PRN 3 Days #12 tablet 02/17/18 Allergies/Adverse Reactions: No Known Allergies Allergy (Verified 10/13/16 12:37) Review of Systems Constitutional: ABSENT: chills, fever(s), headache(s), weight gain, weight loss Eyes: ABSENT: visual disturbances Ears: ABSENT: hearing changes Cardiovascular: ABSENT: chest pain, dyspnea on exertion, edema, orthropnea, palpitations Respiratory: ABSENT: cough, hemoptysis Gastrointestinal: ABSENT: abdominal pain, constipation, diarrhea, hematemesis, hematochezia, nausea, vomiting Genitourinary: ABSENT: dysuria, hematuria Musculoskeletal: ABSENT: joint swelling Integumentary: ABSENT: rash, wounds Neurological: ABSENT: abnormal gait, abnormal speech, confusion, dizziness, focal weakness, syncope Psychiatric: ABSENT: anxiety, depression, homidical ideation, suicidal ideation Endocrine: ABSENT: cold intolerance, heat intolerance, polydipsia, polyuria Hematologic/Lymphatic: ABSENT: easy bleeding, easy bruising Physical Exam Vital Signs: Temp Pulse Resp BP Pulse Ox 98.0 F 74 16 117/67 100 03/14/18 00:35 03/14/18 00:35 03/14/18 00:35 03/14/18 00:35 03/14/18 00:35 Intake & Output 03/12/18 03/13/18 03/14/18 11:59 11:59 11:59 Weight 76.5 kg General appearance: PRESENT: mild distress. ABSENT: disheveled Head exam: PRESENT: atraumatic, normocephalic Eye exam: PRESENT: conjunctiva pink, EOMI, PERRLA. ABSENT: scleral icterus Ear exam: PRESENT: normal external ear exam Mouth exam: PRESENT: moist, tongue midline Neck exam: ABSENT: carotid bruit, JVD, lymphadenopathy, thyromegaly Respiratory exam: PRESENT: clear to auscultation paulina. ABSENT: rales, rhonchi, wheezes Cardiovascular exam: PRESENT: RRR. ABSENT: diastolic murmur, rubs, systolic murmur Pulses: PRESENT: normal dorsalis pedis pul Vascular exam: PRESENT: normal capillary refill GI/Abdominal exam: PRESENT: normal bowel sounds, soft, other - Right-sided flank pain to percussion. ABSENT: distended, guarding, mass, organolmegaly, rebound, tenderness Rectal exam: PRESENT: deferred Extremities exam: PRESENT: full ROM. ABSENT: calf tenderness, clubbing, pedal edema Neurological exam: PRESENT: alert, awake, oriented to person, oriented to place , oriented to time, oriented to situation, CN II-XII grossly intact. ABSENT: motor sensory deficit Psychiatric exam: PRESENT: appropriate affect, normal mood. ABSENT: homicidal ideation, suicidal ideation Skin exam: PRESENT: dry, intact, warm. ABSENT: cyanosis, rash Results Impressions: Limited or Localized CT 03/13/18 21:14 IMPRESSION: Right-sided obstructive uropathy with perinephric stranding, mild right hydroureteronephrosis and two distal ureteral calculi measuring up to 6 mm. Right nephrolithiasis. Assessment & Plan - Diagnosis (1) Acute renal insufficiency Is this a current diagnosis for this admission?: Yes Plan: Secondary to nephrolithiasis, UTI and prerenal azotemia. IV fluid challenge, avoid nephrotoxic meds and doses reevaluate chemistry (2) Ureterolithiasis Is this a current diagnosis for this admission?: Yes Plan: Urology consulted (3) Urinary tract infection Qualifiers: Urinary tract infection type: site unspecified Hematuria presence: with hematuria Qualified Code(s): N39.0 - Urinary tract infection, site not specified; R31.9 - Hematuria, unspecified; R31.9 - Hematuria, unspecified Is this a current diagnosis for this admission?: Yes Plan: Early pyelonephritis given stranding on CT. Antibiotics, follow-up CBC blood and urine culture (4) Vomiting Qualifiers: Vomiting type: unspecified Vomiting Intractability: non-intractable Nausea presence: unspecified Qualified Code(s): R11.10 - Vomiting, unspecified Is this a current diagnosis for this admission?: Yes Plan: Symptomatic management. - Time Time Spent: 30 to 50 Minutes - Inpatient Certification Medical Necessity: Need Close Monitoring Due to Risk of Patient Decompensation
[2018-03-14] MEDS: HEPARIN SOD (PORCINE) 5,000 UNIT/ML 1 ML SYRINGE SUBCUT SCH ×2 (05:22→13:45)
[2018-03-14 08:09] LABS: HEMATOCRIT 36.7 % (37.9-51.0); HEMOGLOBIN 12.4 g/dL (13.5-17.0); MEAN CORPUSCULAR HEMOGLOBIN 29.3 pg (27.0-33.4); MEAN CORPUSCULAR HGB CONC 33.7 g/dL (32.0-36.0); MEAN CORPUSCULAR VOLUME 87 fl (80-97); PLATELET COUNT 224 10^3/uL (150-450); RED BLOOD COUNT 4.22 10^6/uL (4.35-5.55); RED CELL DISTRIBUTION WIDTH 14.2 % (11.5-14.0); WHITE BLOOD COUNT 9.9 10^3/uL (4.0-10.5)
[2018-03-14 08:10] LABS: ABSOLUTE BASOPHILS # (AUTO) 0.1 10^3/uL (0.0-0.2); ABSOLUTE EOSINOPHILS # (AUTO) 0.4 10^3/uL (0.0-0.6); ABSOLUTE LYMPHOCYTES (AUTO) 1.4 10^3/uL (0.5-4.7); ABSOLUTE MONOCYTES (AUTO) 0.9 10^3/uL (0.1-1.4); ABSOLUTE NEUT (AUTO) 7.1 10^3/uL (1.7-8.2); BASOPHILS % (AUTO) 0.6 % (0-2); EOSINOPHILS % (AUTO) 3.8 % (0-6); MONOCYTES % (AUTO) 9.1 % (3-13); SEGMENTED NEUTROPHILS % (AUTO) 72.5 % (42-78); TOTAL CELLS COUNTED % (AUTO) 100 %
[2018-03-14 08:19] LABS: PROTHROMBIN TIME 13.7 SEC (11.4-15.4)
[2018-03-14 08:20] LABS: PARTIAL THROMBOPLASTIN TIME 35.4 SEC (23.5-35.8)
[2018-03-14 08:38] LABS: ANION GAP 7 (5-19); BLOOD UREA NITROGEN 24 mg/dL (7-20); CALCIUM 8.8 mg/dL (8.4-10.2); CARBON DIOXIDE 25 mmol/L (22-30); CHLORIDE 111 mmol/L (98-107); GLUCOSE 95 mg/dL (75-110); POTASSIUM 3.7 mmol/L (3.6-5.0); SODIUM 142.6 mmol/L (137-145)
[2018-03-14] MEDS ORDERED: DOCUSATE SODIUM 100 MG CAPSULE PO SCH (10:00)
[2018-03-14] MEDS ORDERED: TAMSULOSIN HCL 0.4 MG CAP.SR.24H PO SCH (10:00)
[2018-03-14] MEDS ORDERED: LORAZEPAM INJ 2 MG/1 ML VIAL IV PRN (11:55)
[2018-03-14 15:27] VITALS: BP 117/67
--- NOTE | 2018-03-14 21:35 | PDOC DISCHARGE SUMMARY ---
General - Admit/Disc Date/PCP Admission Date/Primary Care Provider: 03/13/18 23:10 Discharge Date: 03/14/18 - Discharge Diagnosis (1) Ureterolithiasis Is this a current diagnosis for this admission?: Yes (2) Urinary tract infection Is this a current diagnosis for this admission?: Yes (3) Vomiting Is this a current diagnosis for this admission?: Yes (4) Chronic renal disease, stage II Is this a current diagnosis for this admission?: Yes - Additional Information Resuscitation Status: Full Code Discharge Diet: As Tolerated Discharge Activity: Activity As Tolerated, Balance Activity w/Rest Prescriptions: Oxycodone HCl/Acetaminophen [Oxycodone-Acetaminophen 5-325] 1 each PO Q4HP PRN # 18 tablet PRN Reason: For Pain Promethazine HCl 12.5 mg PO TID #10 tablet Home Medications: Acetaminophen [Tylenol 325 mg Tablet] 650 mg PO Q4HP PRN tablet 03/14/18 Oxycodone HCl/Acetaminophen [Oxycodone-Acetaminophen 5-325] 1 each PO Q4HP PRN # 18 tablet 03/14/18 Promethazine HCl 12.5 mg PO TID #10 tablet 03/14/18 Tamsulosin HCl [Flomax 0.4 mg Cap.sr] 0.4 mg PO DAILY cap.sr.24h 03/14/18 History of Present Illness History of Present Illness: Per H&P by Dr. Waddell: MACHELLE BOLANOS is a 47 year old male with history of tobacco and recurrent nephrolithiasis. He presents with 24 hours of right- sided flank pain radiating to the groin and multiple episodes of vomiting. In the emergency room is found to have acute renal failure and 2 right-sided nephrolithiasis of 8 and 4 mm respectively. He denies new medication, dehydration, fever chills nausea vomiting or chest pain. Hospital Course Hospital Course: The patient was admitted with right flank pain, nausea and vomiting. CT imagining confirmed multiple nephrolithiasis to the right kidney and ureter with the largest measuring 6 mm, and mild hydroureter and hydronephrosis. The patient received Ceftriaxone x 1 while still in the ED. He was placed on IV fluids for rehydration; recieving a total of 2 L NS with adequate urinary output. His BUN and creatinine remained relatively unchanged. Review of previous lab work shows that his kidney function is stable from 2016; indicating likely mild chronic renal insufficiency. He was provided analgesics and antiemetics as needed for symptoms control. Urology, Dr. Ritter, was consulted. Dr. Ritter recommended the patient be discharged to home and to follow up in the office as an outpatient where lithotripsy would be available. He advised against continued antibiotics. The patient was agreeable to the proposed plan of care. The patient was discharged to home with self care. HE was provided prescriptions for oxycodone and phenergan as needed. He was instructed to follow up with his primary care provider in 1 week and to keep his scheduled procedure appointment with Dr. Ritter for 03/16/18. At time of discharge, the patient was in stable condition with adequate control of nausea and pain. Physical Exam Vital Signs: Temp Pulse Resp BP Pulse Ox 98.0 F 72 16 117/67 99 03/14/18 15:26 03/14/18 15:26 03/14/18 15:26 03/14/18 15:26 03/14/18 15:26 Intake & Output 03/13/18 03/14/18 03/15/18 06:59 06:59 06:59 Intake Total 2118 Output Total 100 Balance 2018 Weight 76.5 kg General appearance: PRESENT: no acute distress, thin, well-developed, well- nourished Head exam: PRESENT: atraumatic, normocephalic Eye exam: PRESENT: conjunctiva pink, EOMI, PERRLA. ABSENT: scleral icterus Ear exam: PRESENT: normal external ear exam Mouth exam: PRESENT: moist, tongue midline Neck exam: ABSENT: carotid bruit, JVD, lymphadenopathy, thyromegaly Respiratory exam: PRESENT: clear to auscultation paulina. ABSENT: rales, rhonchi, wheezes Cardiovascular exam: PRESENT: RRR, +S1, +S2. ABSENT: diastolic murmur, rubs, systolic murmur Vascular exam: PRESENT: normal capillary refill GI/Abdominal exam: PRESENT: normal bowel sounds, soft, other - Rt flank pain raidiating to RLQ. ABSENT: distended, guarding, mass, organolmegaly, rebound, tenderness Rectal exam: PRESENT: deferred Extremities exam: PRESENT: full ROM. ABSENT: calf tenderness, clubbing, pedal edema Neurological exam: PRESENT: alert, awake, oriented to person, oriented to place , oriented to time, oriented to situation, CN II-XII grossly intact. ABSENT: motor sensory deficit Psychiatric exam: PRESENT: agitated, appropriate affect. ABSENT: homicidal ideation, suicidal ideation Skin exam: PRESENT: dry, intact, warm. ABSENT: cyanosis, rash Results Laboratory Results: 03/14/18 07:48 03/14/18 07:48 03/14/18 03/14/18 07:48 07:48 WBC 9.9 RBC 4.22 L Hgb 12.4 L Hct 36.7 L MCV 87 MCH 29.3 MCHC 33.7 RDW 14.2 H Plt Count 224 Seg Neutrophils % 72.5 Lymphocytes % 14.0 Monocytes % 9.1 Eosinophils % 3.8 Basophils % 0.6 Absolute Neutrophils 7.1 Absolute Lymphocytes 1.4 Absolute Monocytes 0.9 Absolute Eosinophils 0.4 Absolute Basophils 0.1 Sodium 142.6 Potassium 3.7 Chloride 111 H Carbon Dioxide 25 Anion Gap 7 BUN 24 H Creatinine 1.61 H Est GFR ( Amer) 56 L Est GFR (Non-Af Amer) 46 L Glucose 95 Calcium 8.8 Impressions: Limited or Localized CT 03/13/18 21:14 IMPRESSION: Right-sided obstructive uropathy with perinephric stranding, mild right hydroureteronephrosis and two distal ureteral calculi measuring up to 6 mm. Right nephrolithiasis. Qualifiers - * PATIENT BEING DISCHARGED WITH ANY OF THE FOLLOWING DIAGNOSIS: No Plan Discharge Plan: Patient is discharged with self care. Follow up with Urology, Dr. Ritter, as directed for outpatient cystoscopy and lithotripsy.
== END 2018-03-14 15:52 | disposition home or self-care (01) | DRG 694 ==
LOC: ER 19:17 → EH 23:10 → 3S 03-14 00:51
PROVIDERS: ADMIT Internal Medicine; ATTEND Internal Medicine
DX: N20.1 Calculus of ureter (principal); N17.9 Acute kidney failure, unspecified; N39.0 Urinary tract infection, site not specified; N18.2 Chronic kidney disease, stage 2 (mild); R10.31 Right lower quadrant pain; R11.10 Vomiting, unspecified; N20.0 Calculus of kidney; F17.210 Nicotine dependence, cigarettes, uncomplicated
CPT/HCPCS: 36415; 76380; 80048; 80053; 81001; 83690; 85025; 85610; 85730; 87086; 96361; 96365; 96375; 99285; J0696; J1644; J1885; J3010; J7030

== ENCOUNTER 2018-03-17 10:01 | Day surgery (SDC) | payer SELFPAY ==
[~2018-03-17 10:01] MED LIST: CEFAZOLIN 1 GM/D5W RTU 1 GM/50 ML RTUPB IV PRN; DEXTROSE 5%-LACTATED RINGERS 1,000 ML IV PRN
[2018-03-17] MEDS ORDERED: FENTANYL CITRATE INJ/PF 100 MCG/2 ML AMPUL ONE (12:04)
[2018-03-17] MEDS ORDERED: ACETAMINOPHEN 1,000 MG/100 ML RTUPB IV ONE (12:05)
[2018-03-17] MEDS ORDERED: DEXMEDETOMIDINE INJ 80 MCG/20 ML VIAL IV ONE (12:05)
[2018-03-17] MEDS ORDERED: PROPOFOL INJ 200 MG/20 ML VIAL IV ONE (12:05)
[2018-03-17] MEDS ORDERED: MIDAZOLAM 2 MG/2 ML INJ ONE (12:05)
[2018-03-17] MEDS ORDERED: KETOROLAC TROMETHAMINE INJ/PF 30 MG/1 ML SDV ONE (13:50)
--- NOTE | 2018-03-17 14:21 | RADIOLOGY REPORT (SQ) ---
EXAM DESCRIPTION: PYELOGRAM RETROGRADE COMPLETED DATE/TIME: 03/17/2018 1:53 pm REASON FOR STUDY: RIGHT RETROGRADE PYELOGRAM LITHOTRIPSY IN CYSTO N20.0 CALCULUS OF KIDNEY COMPARISON: None. FLUOROSCOPY TIME: 1.6 minutes 1 images saved to PACS. TECHNIQUE: Intra-operative images acquired during surgical procedure to evaluate progress. NUMBER OF IMAGES: 1 LIMITATIONS: None. FINDINGS: A an image obtained with fluoro shows contrast in the distal right ureter. A small fillin g defect is present. IMPRESSION: Retrograde pyelogram. Refer to operative note for further information. COMMENT: Quality ID [id number]: Final reports for procedures using fluoroscopy that document radiation exp osure indices, or exposure time and number of fluorographic images (if radiation exposure indices are not available) Please consult full operative report of the attending physician for description of the procedure. TECHNICAL DOCUMENTATION: JOB ID: [id number] [employer]- All Rights Reserved Reading location - IP/workstation name: [email or web address]
[2018-03-17 15:15] VITALS: BP 125/78
--- NOTE | 2018-03-17 16:49 | OPERATIVE REPORT E ---
Operative Report NAME: MACHELLE BOLANOS : 1970 AGE: 47Y DATE OF SURGERY: 03/17/2018 ROOM: PREOPERATIVE DIAGNOSIS: RIGHT URETERAL CALCULI (2). POSTOPERATIVE DIAGNOSIS: RIGHT URETERAL CALCULI (2). OPERATIONS: 1. Cystoscopy with right retrograde. 2. Right ureteroscopy with laser lithotripsy, with basket stone extraction and insertion of 26-cm x 6-Yi double-J catheter. SURGEON: RAMANDEEP WALLER M.D. VEGETABLE LOADER: None. SPECIMENS: None. COMPLICATIONS: None. BLEEDING: Minimal. INDICATIONS: The patient is a 47-year-old gentleman with a history of recurrent kidney stones. He has a 6 and 4-mm distal right ureteral calculus. He has been unable to pass the stones. He comes in today for ureteroscopy with laser lithotripsy. I discussed the options for treatment, as well as risks and benefits. Potential complications that were discussed included but were not limited to bleeding, infection, failure to cure the problem, need for additional surgery, injury to the ureter. The patient appeared to understand the various options, as well as risks and benefits, and wished to proceed with the proposed surgery. PROCEDURE: After the patient was identified in the preop holding area, he was brought to the operating room. Timeout was performed, where the correct patient, side of procedure, and procedure were confirmed. He was then given general anesthesia. He was next carefully positioned in a dorsolithotomy position. All pressure points were padded. He was next prepped and draped in the routine sterile manner. A #23 sheath and panendoscope were used to examine the urethra. This appeared normal. Bladder was carefully examined. There were no ulcerations, tumors or stones. RIGHT RETROGRADE: An open-ended catheter was positioned at the right ureteral orifice. A total of 5 mL was used to fill the right ureter. There were 2 filling defects in the distal ureter, consistent with stone seen on her CAT scan. Impression was filling defects, right distal ureter, consistent with 2 ureteral calculi. RIGHT URETEROSCOPY WITH LASER LITHOTRIPSY AND BASKET STONE EXTRACTION: A guidewire was threaded up the right ureter. I attempted to visualize the stones with a semi-rigid ureteroscope, but there was a narrowing of the ureter. I used a balloon dilation catheter to dilate the distal ureter, after which I was able to visualize the 2 stones and fragment them into multiple small pieces with a Holmium laser. The fragments were all removed using an open-ended nitinol stone basket. The fragments were deposited into the bladder. INSERTION OF 26-CM X 6-EQUATORIAL GUINEAN DOUBLE-J CATHETER: A 26-cm x 6-Yi double-J cath was threaded over a guidewire under fluoroscopic guidance. Good position in the kidney and bladder was confirmed. A string was taped to the penis. PLAN: He will come into the office in 1 week to have his stent removed. DICTATING PHYSICIAN: RAMANDEEP WALLER M.D. [id number] PHY#: [id number] ID: [id number] JOB#: [id number] ACCT: [id number] cc:RAMANDEEP WALLER M.D. >
[2018-03-17] MEDS ORDERED: DEXAMETHASONE SOD PHOSPHATE INJ 4 MG/1 ML VIAL ONE (16:56)
[2018-03-17] MEDS ORDERED: METOCLOPRAMIDE HCL INJ/PF 10 MG/2 ML SDV ONE (16:56)
[2018-03-17] MEDS ORDERED: SUCCINYLCHOLINE CHLORIDE INJ 200 MG/10 ML VIAL ONE (16:56)
[2018-03-17] MEDS ORDERED: GLYCOPYRROLATE 1 MG/5 ML SYRINGE ONE (16:56)
[2018-03-17] MEDS ORDERED: NEOSTIGMINE METHYLSULFATE 10 MG/10 ML VIAL ONE (16:56)
[2018-03-17] MEDS ORDERED: LIDOCAINE 2% INJ-PF (20 MG/ML) 2 ML AMPUL ONE (16:56)
[2018-03-17] MEDS ORDERED: ONDANSETRON HCL INJ/PF 4 MG/2 ML SDV ONE (16:56)
[2018-03-17] MEDS ORDERED: ROCURONIUM BROMIDE INJ 50 MG/5 ML VIAL IV ONE (16:56)
[2018-03-17] MEDS ORDERED: OXYBUTYNIN CHLORIDE 5 MG TABLET PO SCH (22:00)
== END 2018-03-17 15:15 | disposition home or self-care (01) ==
LOC: OROUT 10:01
PROVIDERS: ATTEND Urology
DX: N20.1 Calculus of ureter (principal); F17.210 Nicotine dependence, cigarettes, uncomplicated
CPT/HCPCS: 52356; 74420; C1758; C1726; C2617; J2250; J0690; J3490 ×4; J1100; J3010; J1885; J2765; J0330; J2405; J2704; J0131; 918